=== PATIENT | male | born 1930 | race Caucasian/White ===

== ENCOUNTER 2017-06-27 07:53 | Day surgery (SDC) | payer OTHER, BC ==
[2017-06-25 09:27] VITALS: BMI 29.0
[2017-06-27] MEDS ORDERED: PROPOFOL 20 ML ONE ×2 (08:01)
[2017-06-27] MEDS ORDERED: LIDOCAINE HCL/PF 2% SDV 5ML VIAL ONE (08:01)
[2017-06-27 10:00] VITALS: PULSE 68; TEMP 98
[2017-06-27 11:37] VITALS: BP 110/68
== END 2017-06-27 10:20 | disposition home or self-care (01) ==
LOC: FASU-ENDO 07:53
PROVIDERS: ATTEND Internal Medicine Gastroenterology
PROC: 0DJD8ZZ Inspection of Lower Intestinal Tract, Via Natural or Artificial Opening Endoscopic (ICD-10-PCS; principal; 2017-06-27 09:22)
DX: Z85.038 Personal history of other malignant neoplasm of large intestine (principal); Z98.0 Intestinal bypass and anastomosis status; K57.30 Diverticulosis of large intestine without perforation or abscess without bleeding

== ENCOUNTER 2019-03-20 14:46 | Inpatient (IN) | payer OTHER | END 2019-03-30 12:05 | disposition home or self-care (01) | LOC: J4W 03-21 06:37 → JER 14:46 → JERBED 18:41 ==

== ENCOUNTER 2019-04-07 10:28 | Inpatient (IN) | payer OTHER | END 2019-04-10 03:30 | disposition short-term general hospital (02) | LOC: JER 10:28 → JERBED 13:05 → J4W 23:23 ==